=== PATIENT | male | born 1950 | race Caucasian/White ===

== ENCOUNTER → 2017-06-14 | Outpatient (CLI) | payer MEDICARE, OTHER ==
--- NOTE | 2017-06-14 09:29 | KCIC ---
CT CHEST WO CONTRAST Indication: Smoker, COPD, asthma Technique: NoncontrastCT imaging was performed of the[chest], multiplanar reconstruction images submitted. One or more of the following individualized dose reduction techniques were utilized for this examination: 1. Automated exposure control 2. Adjustment of the mA and/or kV according to patient size 3. Use of iterative reconstruction technique. Comparison: December 09, 2015 and June 17, 2014 Findings: AP window node 0.8 cm short axis dimension is stable, no new significantly enlarged nodes identified of the chest. There are several subcentimeter axillary nodes bilaterally as seen previously. There is centrilobular and paraseptal emphysema with upper zone predominance. There is no new infiltrate, pleural or pericardial effusion, pneumothorax. There is no new significant pulmonary nodularity. There are some calcified left hilar nodes. Thoracic aortic caliber is within normal limits. There is coronary calcification. There is multilevel thoracic spondylosis. There are multilevel posterior disc osteophyte complexes/osteophytes greatest at T5-T6 through T8-T9. There is likely moderate to severe spinal stenosis at T5-T6 with central canal is estimated at 5 mm. There is also left lateral recess stenosis T6-7. IMPRESSION: 1. There is emphysema with upper zone predominance, no new infiltrate. 2. There is coronary calcification. 3. There is multilevel thoracic spondylosis, spinal stenosis greatest at T5-T6 and also left lateral recess stenosis T6-7. Electronically signed by: Pancho Stanton MD (06/14/2017 9:26 AM) [id number]
--- NOTE | 2017-06-14 15:15 | KCIC ---
SCAN OF ABDOMINAL AORTA History: Nicotine dependence, screening for abdominal aortic aneurysm Comparison: None. Findings: Multiple grayscale, color, and duplex spectral analysis waveform images of the abdominal aorta are submitted. Proximal abdominal aorta measured up to 2.6 cm, 1.7 cm at the mid segment, and 1.6 cm distally. Velocities in centimeters per second are as follows: Proximal abdominal aortic artery PSV 88, mid abdominal aorta 104, distally 123, right common iliac artery 157, left common iliac artery 146. Right common iliac artery measured up to 0.9 cm, left 0.9 cm. There is scattered plaque. The entirety of the abdominal aorta could not be visualized due to bowel gas. Impression: 1. There is no significant dilatation of the abdominal aorta, slightly ectatic proximal abdominal aorta up to 2.7 cm. There is scattered plaque. Electronically signed by: Pancho Stanton MD (06/14/2017 3:12 PM) [facility]-[id number]
== END | disposition home or self-care (01) ==
LOC: KCIC CT 08:52
PROVIDERS: ATTEND Family Medicine
DX: J44.9 Chronic obstructive pulmonary disease, unspecified (principal); I71.4 Abdominal aortic aneurysm, without rupture; M48.04 Spinal stenosis, thoracic region
CPT/HCPCS: 71250; 76770

== ENCOUNTER 2018-07-28 04:41 | Inpatient (IN) | payer MEDICARE, OTHER ==
[~2018-07-28] VITALS: Ht 185.4 cm; Wt 89.8 kg
--- NOTE | 2018-07-28 05:13 | PHYS DOC ---
Past Medical History Past Medical History: Asthma, Hypertension Past Surgical History: No Surgical History Smokin Pack Per Day Alcohol Use: Occasionally Drug Use: None Adult General Chief Complaint Chief Complaint: SHORTNESS OF BREATH HPI HPI Patient is a 67-year-old male who is presenting with a 2 day history of shortness of breath. He has a past medical history of asthma. He reports a productive cough but denies fever, chills, nasal congestion, and sore throat. Patient has taken Mucinex and albuterol to no relief. Patient denies chest pain or palpitations. Patient denies trauma. Patient reports that he got his flu shot in May. Review of Systems Review of Systems Constitutional: Denies fever or chills [] Eyes: Denies change in visual acuity, redness, or eye pain [] HENT: Denies nasal congestion or sore throat [] Respiratory: Reports cough and shortness of breath [] Cardiovascular: Denies chest pain or palpitations [] GI: Denies abdominal pain, nausea, vomiting, or diarrhea [] : Denies dysuria or hematuria [] Musculoskeletal: Denies back pain or joint pain [] Integument: Denies rash or skin lesions [] Neurologic: Denies headache, focal weakness or sensory changes [] Complete systems were reviewed and found to be within normal limits, except as documented in this note. Current Medications Current Medications Current Medications Medications (Trade) Dose Ordered Sig/King Start Time Stop Time Status Last Admin Dose Admin Acetaminophen (Tylenol) 650 mg PRN Q4HRS PRN 07/28/18 06:30 07/29/18 06:29 Albuterol/ Ipratropium (Duoneb) 3 ml 1X ONCE 07/28/18 06:00 07/28/18 06:03 DC 07/28/18 06:01 3 ML Dexamethasone Sodium Phosphate (Decadron) 10 mg 1X ONCE 07/28/18 05:30 07/28/18 05:34 DC 07/28/18 06:06 10 MG Ondansetron HCl (Zofran) 4 mg PRN Q8HRS PRN 07/28/18 06:30 07/29/18 06:29 Sodium Chloride 1,000 ml @ 1,000 mls/hr Q1H 07/28/18 05:30 07/28/18 06:29 DC 07/28/18 06:06 1,000 MLS/HR Allergies Allergies Allergies Coded Allergies Type Severity Reaction Last Updated Verified No Known Drug Allergies 07/28/18 No Physical Exam Physical Exam Constitutional: Well developed, well nourished, respiratory distress. [] HENT: Normocephalic, atraumatic, nose normal. [] Eyes: Conjunctiva normal, no discharge. [] Neck: Normal range of motion, no tenderness. [] Cardiovascular: Heart rate regular rhythm, no murmur [] Lungs & Thorax: Moderate bilateral end expiratory wheezing [] Abdomen: Soft, no tenderness. [] Skin: Warm, dry, no erythema, no rash. [] Back: No tenderness, no CVA tenderness. [] Extremities: No tenderness, no edema. [] Neurologic: Alert and oriented X 3, no focal deficits noted. [] Psychologic: Affect normal, judgement normal, mood normal. [] Current Patient Data Vital Signs Vital Signs Date Time Temp Pulse Resp B/P (MAP) Pulse Ox O2 Delivery O2 Flow Rate FiO2 07/28/18 05:46 96 Room Air 07/28/18 05:21 73 18 166/79 (108) 2.0 07/28/18 04:51 96.8 96.8 Lab Values Laboratory Tests Test 07/28/18 05:00 White Blood Count 8.8 x10^3/uL (4.0-11.0) Red Blood Count 5.25 x10^6/uL (4.30-5.70) Hemoglobin 16.6 g/dL (13.0-17.5) Hematocrit 48.4 % (39.0-53.0) Mean Corpuscular Volume 92 fL (79-100) Mean Corpuscular Hemoglobin 32 pg (25-35) Mean Corpuscular Hemoglobin Concent 34 g/dL (31-37) Red Cell Distribution Width 13.1 % (11.5-14.5) Platelet Count 181 x10^3/uL (140-400) Neutrophils (%) (Auto) 51 % (31-73) Lymphocytes (%) (Auto) 29 % (24-48) Monocytes (%) (Auto) 7 % (0-9) Eosinophils (%) (Auto) 13 % (0-3) H Basophils (%) (Auto) 0 % (0-3) Neutrophils # (Auto) 4.5 x10^3uL (1.8-7.7) Lymphocytes # (Auto) 2.5 x10^3/uL (1.0-4.8) Monocytes # (Auto) 0.6 x10^3/uL (0.0-1.1) Eosinophils # (Auto) 1.1 x10^3/uL (0.0-0.7) H Basophils # (Auto) 0.0 x10^3/uL (0.0-0.2) Sodium Level 139 mmol/L (136-145) Potassium Level 3.9 mmol/L (3.5-5.1) Chloride Level 102 mmol/L (98-107) Carbon Dioxide Level 24 mmol/L (21-32) Anion Gap 13 (6-14) Blood Urea Nitrogen 11 mg/dL (8-26) Creatinine 1.0 mg/dL (0.7-1.3) Estimated GFR (Cockcroft-Gault) 74.8 BUN/Creatinine Ratio 11 (6-20) Glucose Level 134 mg/dL (70-99) H Calcium Level 9.1 mg/dL (8.5-10.1) Magnesium Level 1.9 mg/dL (1.8-2.4) Total Bilirubin 0.6 mg/dL (0.2-1.0) Aspartate Amino Transferase (AST) 27 U/L (15-37) Alanine Aminotransferase (ALT) 39 U/L (16-63) Alkaline Phosphatase 86 U/L (46-116) Total Protein 7.6 g/dL (6.4-8.2) Albumin 3.9 g/dL (3.4-5.0) Albumin/Globulin Ratio 1.1 (1.0-1.7) Laboratory Tests 07/28/18 05:00 Laboratory Tests 07/28/18 05:00 EKG EKG [] Radiology/Procedures Radiology/Procedures Two-view chest x-ray Pulmonary report by ED physician without acute process. Course & Med Decision Making Course & Med Decision Making Pertinent Labs and Imaging studies reviewed. (See chart for details) Patient is 67 YO male with 2 days worth of shortness of breath. Patient has a past medical history of asthma. Patient reports a productive cough. Labs obtained and posted to chart. Patient received 2 DuoNeb treatments and steroids in the ED, initial O2 sat was 89 and improved to 98, with little to no improvement in wheezing and work of breathing. Preliminary report of chest x- ray shows no acute process. Patient requiring admission for further evaluation and treatment. Discussed with Dr. Trinidad (PCP) who is in agreement with admission. Discussed findings and plan with patient and family, who acknowledge understanding and agreement. Dragon Disclaimer Dragon Disclaimer This electronic medical record was generated, in whole or in part, using a voice recognition dictation system. Departure Departure Impression: Primary Impression: Asthma exacerbation Additional Impression: Hypoxia Disposition: ADMITTED INPATIENT Admitting Physician: Duglas Trinidad Condition: GUARDED Referrals: DUGLAS TRINIDAD MD (PCP) Critical Care Time Critical care time was 30 minutes which includes time at bedside, spent in discussion of patient's care with specialists and/or family members, with interpretation of laboratory and/or radiological studies and is exclusive of procedures. Problem Qualifiers Primary Impression: Asthma exacerbation Asthma severity: moderate Asthma persistence: persistent Qualified Codes: J45.41 - Moderate persistent asthma with (acute) exacerbation CRISTA MACK DO Jul 28, 2018 05:13
[2018-07-28] MEDS ORDERED: IV NORMAL SALINE 1000ML BAG 1,000 ML IV SCH (05:30)
[2018-07-28] MEDS ORDERED: IPRATRPIUM/ALBUTEROL 0.5/2.5MG 3 ML NEBU. NEB ONE ×2 (05:30→06:00)
[2018-07-28] MEDS ORDERED: DEXAMETHASONE SOD PHOS 20 MG/5 ML VIAL. IV ONE (05:30)
[2018-07-28 05:36] LABS: BASO % 0 % (0-3); EOS # 1.1 x10^3/uL (0.0-0.7); EOS % 13 % (0-3); HEMATOCRIT 48.4 % (39.0-53.0); HEMOGLOBIN 16.6 g/dL (13.0-17.5); LYMPH # 2.5 x10^3/uL (1.0-4.8); LYMPH % 29 % (24-48); MEAN CORPUSCULAR HEMOGLOBIN 32 pg (25-35); MEAN CORPUSCULAR HGB CONC 34 g/dL (31-37); MEAN CORPUSCULAR VOLUME 92 fL (79-100); MONO # 0.6 x10^3/uL (0.0-1.1); MONO % 7 % (0-9); NEUT # 4.5 x10^3uL (1.8-7.7); NEUT % 51 % (31-73); PLATELET COUNT 181 x10^3/uL (140-400); RED BLOOD COUNT 5.25 x10^6/uL (4.30-5.70); RED CELL DISTRIBUTION WIDTH 13.1 % (11.5-14.5); WHITE BLOOD COUNT 8.8 x10^3/uL (4.0-11.0)
[2018-07-28 05:48] LABS: CALCIUM 9.1 mg/dL (8.5-10.1); GFR 74.8; POTASSIUM 3.9 mmol/L (3.5-5.1)
[2018-07-28 05:54] LABS: ALBUMIN 3.9 g/dL (3.4-5.0); ALBUMIN/GLOBULIN RATIO 1.1 (1.0-1.7); MAGNESIUM 1.9 mg/dL (1.8-2.4); TOTAL BILIRUBIN 0.6 mg/dL (0.2-1.0); TOTAL PROTEIN 7.6 g/dL (6.4-8.2)
[2018-07-28] MEDS ORDERED: ONDANSETRON PF 4 MG/2 ML VIAL. IV PRN (06:30)
[2018-07-28] MEDS ORDERED: ACETAMINOPHEN 325 MG TABLET. PO PRN (06:30)
[2018-07-28] MEDS ORDERED: GUAI600T47 PO (07:49)
[2018-07-28] MEDS ORDERED: IPRATRPIUM/ALBUTEROL 0.5/2.5MG 3 ML NEBU. NEB SCH (08:00)
--- NOTE | 2018-07-28 08:06 | RAD ---
2 view chest 07/28/2017 CLINICAL INDICATION: Productive cough. COMPARISON: CT chest 06/14/2017 FINDINGS: There is hyperexpansion of both lungs. Scattered areas of pleural-parenchymal scarring throughout both lungs. There are symmetric nodular opacities overlying the central mid lungs, on the left interposed between the level of the posterior 8th and 9th ribs and on the right overlying the level of the 9th rib. There are patchy right lower lobe opacities. No pleural effusion or pneumothorax. IMPRESSION: 1. Patchy right lower lobe opacities, concerning for infection. Follow-up two-view chest radiograph is recommended after a course of therapy to assess for resolution. At that time, nipple marker should be utilized due to symmetric nodular opacities described below. 2. Symmetric nodular opacities overlying the central midlung levels and do not conform to any nodule seen on recent CT chest 06/14/2017. Findings likely represent nipple shadow, though follow-up should conform to the above recommendation. 3. Emphysema. Electronically signed by: Ken Singletary MD (07/28/2018 8:01 AM) [facility]
[2018-07-28] MEDS ORDERED: [UNRECOGNIZED DRUG - OTHER] (08:10)
--- NOTE | 2018-07-28 08:18 | PDOC ---
Provider Note Provider Note [id number] SHARON FRANKLIN MD Jul 28, 2018 08:18
--- NOTE | 2018-07-28 08:36 | HP ---
ADMIT DATE: 07/28/2018 CHIEF COMPLAINT: Shortness of breath and cough. HISTORY OF PRESENT ILLNESS: A 67-year-old white male with known COPD, came in with increasing shortness of breath, cough and scant sputum production, but no hemoptysis, fever or chills. X-ray showed evidence of possible pneumonia and he was admitted with IV Solu-Medrol from the ER, which was actually given as dexamethasone. MEDICATIONS: Listed per the chart. PAST MEDICAL HISTORY: No significant surgeries or other serious medical problems. ALLERGIES: No drug allergies. SOCIAL HISTORY: Still light smoker, , physically active, light drinker. FAMILY HISTORY: Unremarkable. REVIEW OF SYSTEMS: No other specific complaints. OBJECTIVE: ENT: All within normal limits. NECK: No masses, nodes or bruits. LUNGS: Fine expiratory wheezes. No obvious rales or dullness to percussion. CARDIOVASCULAR: Regular rate. No murmur. ABDOMEN: Soft, benign and nontender. EXTREMITIES: Unremarkable. 2+ clubbing. ASSESSMENT: Chronic obstructive pulmonary disease with likely secondary pneumonia. PLAN: As ordered. SHARON FRANKLIN MD DR: ADOLFO/rachelle JOB#: [id number] / [id number]
[2018-07-28] MEDS: AZITHROMYCIN 250 MG TABLET. PO SCH (10:06)
[2018-07-28] MEDS: methylPREDNISolone SOD SUCC PF 40 MG/ML VIAL. IV SCH ×2 (10:09→21:19)
[2018-07-28] MEDS: cefTRIAXone IV Push 1 GM VIAL. IVP SCH (10:09)
[2018-07-28 10:43] VITALS: BP 142/83
[2018-07-28] MEDS: IPRATRPIUM/ALBUTEROL 0.5/2.5MG 3 ML NEBU. NEB SCH ×3 (11:18→20:08)
--- NOTE | 2018-07-28 12:32 | NUR ---
SW following for discharge planning. Discussed with RN, RN advised pt is from home with and gets around great. No SW needs at this time. SW will continue to follow.
[2018-07-28] MEDS ORDERED: BISO1TAB4 PO (13:26)
--- NOTE | 2018-07-28 14:15 | NUR ---
Did receive telephone order from Dr. Trinidad to restart Bisoprolol. Will send to pharmacy
[2018-07-28 15:00] VITALS: BP 139/85
[2018-07-28] MEDS: BISOPROLOL PO SCH (17:03)
[2018-07-28] MEDS: HYDROCHLOROTHIAZIDE PO SCH (17:03)
[2018-07-28 19:00] VITALS: BP 119/72
[2018-07-28] MEDS: LACTOBACILLUS RHAMNOSUS GG 1 CAPSULE. PO SCH (21:18)
[2018-07-28 23:02] VITALS: BP 113/74
[2018-07-29 03:00] VITALS: BP 125/77
[2018-07-29 07:00] VITALS: BP 129/72
[2018-07-29] MEDS: IPRATRPIUM/ALBUTEROL 0.5/2.5MG 3 ML NEBU. NEB SCH ×4 (07:09→20:17)
[2018-07-29] MEDS: methylPREDNISolone SOD SUCC PF 40 MG/ML VIAL. IV SCH ×2 (07:53→21:09)
[2018-07-29] MEDS: AZITHROMYCIN 250 MG TABLET. PO SCH (07:53)
[2018-07-29] MEDS: LACTOBACILLUS RHAMNOSUS GG 1 CAPSULE. PO SCH ×2 (07:53→21:09)
[2018-07-29] MEDS: cefTRIAXone IV Push 1 GM VIAL. IVP SCH (07:54)
[2018-07-29] MEDS: BISOPROLOL PO SCH (07:54)
[2018-07-29] MEDS: HYDROCHLOROTHIAZIDE PO SCH (07:54)
--- NOTE | 2018-07-29 08:38 | PDOC ---
Provider Note Provider Note vss, no temp, less sob, some sputum- has diffusw wheezes, scant rll rales- labs ok- cont tx re cap, steroids, nebs SHARON FRANKLIN MD Jul 29, 2018 08:38
[2018-07-29 11:00] VITALS: BP 117/76
--- NOTE | 2018-07-29 13:12 | NUR ---
SW following for discharge planning. Discussed with RN, pt is from home. RN advised no SW needs at this time and anticipates pt will discharge home tomorrow (07/30/18).
[2018-07-29 15:00] VITALS: BP 124/81
[2018-07-29 19:00] VITALS: BP 124/86
[2018-07-29 23:00] VITALS: BP 123/72
[2018-07-30 03:00] VITALS: BP 119/79
[2018-07-30 07:00] VITALS: BP 136/78
[2018-07-30] MEDS: IPRATRPIUM/ALBUTEROL 0.5/2.5MG 3 ML NEBU. NEB SCH (07:08)
--- NOTE | 2018-07-30 08:08 | DISCH ---
DISCHARGE INSTRUCTIONS Condition on Discharge Condition on Discharge: Stable Activity After Discharge Activity Instructions for Disc: No restrictions Diet after Discharge Diet after Discharge: Regular Follow-Up Follow up with: dr jordan Rock w SHARON FRANKLIN MD Jul 30, 2018 08:08
--- NOTE | 2018-07-30 08:11 | PDOC ---
Provider Note Provider Note [id number] SHARON FRANKLIN MD Jul 30, 2018 08:11
[2018-07-30] MEDS: AZITHROMYCIN 250 MG TABLET. PO SCH (08:33)
[2018-07-30] MEDS: BISOPROLOL PO SCH (08:33)
[2018-07-30] MEDS: LACTOBACILLUS RHAMNOSUS GG 1 CAPSULE. PO SCH (08:33)
[2018-07-30] MEDS: HYDROCHLOROTHIAZIDE PO SCH (08:33)
--- NOTE | 2018-07-30 08:36 | DS ---
DATE OF DISCHARGE: 07/30/2018 HOSPITAL SUMMARY: A 67-year-old white male with known COPD and hypertension, came in with increasing cough, wheezing and fatigue. Chest x-ray showed mild infiltrates in the right lower lobe consistent with pneumonia. Chemistry profile and CBC were unremarkable and sputum cultures had no growth. He was given IV Rocephin, oral azithromycin and IV steroids through hospital course and is feeling better at this time. His room air saturations are good. He passed his 6-minute walk and will be discharged and followed as an outpatient. FINAL DIAGNOSES: 1. Right lower lobe pneumonia. 2. Chronic obstructive pulmonary disease. OPERATIONS, PROCEDURES, COMPLICATIONS, AND CONSULTATIONS: None. DISPOSITION: He will finish a week of Augmentin 875 one twice a day and prednisone taper as written. Home meds remain the same. Complete tobacco avoidance was encouraged. Office followup in 1 week and will need a repeat CT scan of the chest soon, as his last screening CT was about 1 year ago. SHARON FRANKLIN MD DR: ADOLFO/rachelle JOB#: [id number] / [id number]
[2018-07-30] MEDS ORDERED: predniSONE 20 MG TABLET PO ONE (09:00)
--- NOTE | 2018-07-30 09:55 | NUR ---
Discharge Note: [facility] Discharge instructions and discharge home medications reviewed with Patient and a copy given. All questions have been answered and understanding verbalized. The following instructions and handouts were given: discharge instructions (diet, activity, etc.), medication, follow-up instructions, patient education. Discontinued lines and drains: peripheral IV discontinued without complications and with catheter tip intact. Patient discharged to home with self care via private vehicle.
--- NOTE | 2018-07-30 11:48 | NUR ---
SW following. Discussed with RN, RN advised no SW needs. Pt will discharge home today with self care.
== END 2018-07-30 09:40 | disposition home or self-care (01) | DRG 190 ==
LOC: ER 04:41 → 5 SOUTH 06:46
PROVIDERS: ADMIT Family Medicine; ATTEND Family Medicine
DX: J44.0 Chronic obstructive pulmonary disease with (acute) lower respiratory infection (principal); J18.1 Lobar pneumonia, unspecified organism; J45.901 Unspecified asthma with (acute) exacerbation; I10 Essential (primary) hypertension; F17.210 Nicotine dependence, cigarettes, uncomplicated
CPT/HCPCS: 36415; 71046; 80053; 83735; 84484; 85025; 87070; 87205; 94640; 94760; 96361; 96374; J0696; J1100; J2920; J7030; J7512; J7620; Q0144; 99285-25; G0378

== ENCOUNTER → 2019-06-17 | Outpatient (CLI) | payer MEDICARE, OTHER ==
[~2019-06-17] MED LIST: BISO1TAB4 PO; GUAI600T47 PO; [UNRECOGNIZED DRUG - OTHER]
--- NOTE | 2019-06-17 17:29 | KCIC ---
CT LOW DOSE LUNG SCREENING Indication: Lung cancer screening Technique: Noncontrast CT imaging was performed of the chest as per low dose screening protocol, multiplanar reconstruction images submitted. One or more of the following individualized dose reduction techniques were utilized for this examination: 1. Automated exposure control 2. Adjustment of the mA and/or kV according to patient size 3. Use of iterative reconstruction technique. Comparison: June 14, 2017; 12/09/2015 Findings: There is some motion. There is again emphysema. There is no new infiltrate, pleural pericardial fluid, pneumothorax. Small 0.2 cm left upper lobe nodule image 39 series 2 is stable. There is mild linear reticular density along the medial aspect of the right major fissure, likely component of mild fibrotic change as there is adjacent mild bronchiectasis. There is a focus of slight increased density of the right lower lobe near the fissure image 245 series 6 about 0.4 cm in size adjacent to the area of likely fibrotic change. There is mild septal thickening of the left lower lobe and lingula. Major airways are patent. There is some coronary calcification. No new significantly enlarged nodes identified of the chest, previously seen subcentimeter mediastinal nodes similar. There is multilevel thoracic spondylosis. There may be hepatic steatosis. IMPRESSION: 1. There is small focus of slight nodularity of the right lower lobe although adjacent area of fibrotic change and there is some motion degradation which may accentuate appearance. Lung RADS category 3, low-dose chest CT in 6 months recommended. 2. There is some coronary calcification. 3. There is emphysema. Electronically signed by: Pancho Stanton MD (06/17/2019 5:26 PM) [facility]
== END | disposition home or self-care (01) ==
LOC: KCIC CT 13:14
PROVIDERS: ATTEND Family Medicine
DX: Z12.2 Encounter for screening for malignant neoplasm of respiratory organs (principal); J43.9 Emphysema, unspecified; M47.814 Spondylosis without myelopathy or radiculopathy, thoracic region; I25.10 Atherosclerotic heart disease of native coronary artery without angina pectoris; J45.909 Unspecified asthma, uncomplicated; I10 Essential (primary) hypertension; Z87.891 Personal history of nicotine dependence
CPT/HCPCS: G0297

== ENCOUNTER → 2019-12-22 | Outpatient (CLI) | payer MEDICARE, OTHER ==
--- NOTE | 2019-12-22 09:41 | KCIC ---
CT LOW DOSE LUNG SCREENING Indication: Lung cancer screening, previous smoker of 40 years Technique: Noncontrast CT imaging was performed of the chest as per low dose screening protocol, multiplanar reconstruction images submitted. One or more of the following individualized dose reduction techniques were utilized for this examination: 1. Automated exposure control 2. Adjustment of the mA and/or kV according to patient size 3. Use of iterative reconstruction technique. Comparison: June 17, 2019 Findings: Previously seen right lower lobe nodular density near the major fissure is less apparent on this exam, adjacent more reticular appearing density likely component of fibrotic change. No new suspicious pulmonary nodularity is identified. There is again small left upper lobe nodule about 0.3 cm in size fairly similar image 185 series 6. There is again septal thickening and emphysema. There is coronary calcification. No new significant chest lymphadenopathy is identified. There is no new pericardial or pleural fluid, lobar infiltrate, or pneumothorax. Very minimal density in the trachea adherent to the alvares is probably component of mucous. There is multilevel thoracic spondylosis. There is multilevel thoracic facet degenerative change. There is fairly significant spinal stenosis at T5-6, posterior disc osteophyte complex/osteophytes with residual AP central canal about 4 mm, also left lateral recess stenosis at T6-7. There is variable multilevel thoracic neural foramina compromise in part due to facet degenerative change. IMPRESSION: 1. Previously seen right lower lobe nodular density has decreased, no new suspicious pulmonary nodularity. Lung RADS category 2, one-year low dose screening follow-up advised. 2. There is emphysema. 3. There is coronary calcification. 4. There is thoracic spinal stenosis greatest at T5-T6. Electronically signed by: Pancho Stanton MD (12/22/2019 9:38 AM) [id number]
== END | disposition home or self-care (01) ==
LOC: KCIC CT 08:14
PROVIDERS: ATTEND Family Medicine
DX: J43.8 Other emphysema (principal); R91.1 Solitary pulmonary nodule; I25.10 Atherosclerotic heart disease of native coronary artery without angina pectoris; M47.894 Other spondylosis, thoracic region; M48.04 Spinal stenosis, thoracic region; M25.78 Osteophyte, vertebrae; Z87.891 Personal history of nicotine dependence
CPT/HCPCS: G0297

== ENCOUNTER → 2021-06-09 | Outpatient (CLI) | payer MEDICARE, OTHER ==
[~2021-06-09] MED LIST changes: -BISO1TAB4 PO; +BISO1TAB83 PO
--- NOTE | 2021-06-09 13:41 | KCIC ---
EXAM: CT CHEST WITHOUT CONTRAST HISTORY: Smoker for 45 years. Quit 2.5 years ago. COMPARISON: CT chest low dose 12/22/2019 TECHNIQUE: Helical CT of the chest performed without contrast. Coronal and sagittal reformats were o btained. One or more of the following individualized dose reduction techniques were utilized for this examinat ion: 1. Automated exposure control 2. Adjustment of the mA and/or kV according to patient size 3. Use of iterative reconstruction technique. FINDINGS: Heart and great vessels: The heart is normal size. There are coronary artery calcifications. No peric ardial effusion. Thoracic aorta is normal in caliber. Mediastinum and tripp: No mediastinal or hilar lymphadenopathy. Lungs and pleura: A 4 mm nodule in the right lower lobe along the major fissure is unchanged from 201 9 (image 356, series 3). No new pulmonary nodules. There are peripheral predominant reticular opaciti es in the lingula, left lower lobe, and to lesser extent in the right middle and lower lobes. Mild ce ntrilobular and paraseptal emphysema. There is a calcified granuloma in the left lower lobe. Chest wall and axillae: No axillary lymphadenopathy. Upper abdomen: Visualized portion of the upper abdomen is unremarkable. Bones: No acute osseous abnormality. There is degenerative disc disease with prominent osteophytes at T5-T6, T6-T7, and T7-T8 resulting in canal narrowing. IMPRESSION: 1. Lung RADS 2-benign appearance or behavior. Unchanged 4 mm nodule in the right lower lobe along th e major fissure. Recommend continued annual surveillance with low-dose lung screen. 2. Unchanged mild centrilobular and paraseptal emphysema and interstitial changes in the lung bases. Electronically signed by: Sara Sue MD (06/09/2021 1:38 PM) [id number]
== END ==
LOC: KCIC CT 08:12
PROVIDERS: ATTEND Family Medicine
DX: Z12.2 Encounter for screening for malignant neoplasm of respiratory organs (principal); I25.10 Atherosclerotic heart disease of native coronary artery without angina pectoris; J84.10 Pulmonary fibrosis, unspecified; M51.34 Other intervertebral disc degeneration, thoracic region; M25.78 Osteophyte, vertebrae; J43.2 Centrilobular emphysema; Z87.891 Personal history of nicotine dependence
CPT/HCPCS: 71271